=== PATIENT | female | born 1975 | race Caucasian/White ===

== ENCOUNTER → 2016-12-10 | Outpatient (CLI) | payer SELFPAY ==
[~2016-12-10] MED LIST: CARB200T PO; PHN100C PO
--- OUTSIDE RECORDS SUMMARY | 2016-12-10 06:46 | XMS REPORT ---
Author Author PANTERA DE [facility] e[employer] Address Unknown Phone Unavailable Care Team Providers [facility] [employer] Name Role Phone PANTERA DE CP Unavailable Allergies No Known Allergies Problems Problem Type Condition ICD-9 Code Onset Dates Condition Status Problem Other bursitis disorders 727.3 Active Assessment Encounter for long-term (current) use of other medications V58.69 Active Problem Influenza with other respiratory manifestations 487.1 Active Problem Unspecified viral infection, in conditions classified elsewhere and of unspecified site 079.99 Active Problem Encounter for long-term (current) use of other medications V58.69 Active Problem Lumbago 724.2 Active Problem Need for prophylactic vaccination and inoculation, Influenza V04.81 Active Problem Unspecified follow-up examination V67.9 Active Problem 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
--- NOTE | 2016-12-10 08:50 | Diagnostic Imaging Report ---
INDICATION: Right lower quadrant pain. Abdominal ultrasound performed in the routine fashion. FINDINGS: The liver showed normal echogenicity with no focal lesions. Gallbladder was unremarkable with no gallstones or gallbladder wall thickening. Common duct measured 4.8 mm. Pancreas is unremarkable. The spleen was normal and measured 9.2 cm in length. The visualized portions of the aorta and IVC were normal. The right kidney measured 10.3 cm in length, the left measured 11.1 cm in length. There is a small cyst in left kidney superiorly. There is increased echogenicity in the central portions of both kidneys, which in correlation with previous CT study is compatible with medullary sponge kidney. Portal vein is patent. There is no ascites. Limited views of the uterus demonstrates no abnormality. There is no intrauterine gestation. IMPRESSION: Small cyst in left kidney. Increased echogenicity in the central portions of both kidneys, and correlation with the prior CT study, this suggests medullary sponge kidney. There is no hydronephrosis. Dictated by: Dictated on workstation # [id number]
== END ==
LOC: RAD 06:43
PROVIDERS: ATTEND Family Medicine
DX: R10.31 Right lower quadrant pain (principal)
CPT/HCPCS: 76700